=== PATIENT | female | born 1955 | race African-American/Black ===

== ENCOUNTER 2017-08-30 14:46 | Emergency (ER) | payer OTHER ==
[~2017-08-30] VITALS: Ht 154.9 cm; Wt 59.8 kg
[2017-08-30] MEDS ORDERED: MOBIC7.5 MG PO (16:57)
[2017-08-30 17:12] VITALS: BP 169/94
== END 2017-08-30 17:14 | disposition home or self-care (01) ==
LOC: EME 14:46
DX: L84 Corns and callosities (principal); M77.9 Enthesopathy, unspecified; I10 Essential (primary) hypertension; F17.200 Nicotine dependence, unspecified, uncomplicated; Z87.81 Personal history of (healed) traumatic fracture
CPT/HCPCS: 99281; 99283